=== PATIENT | male | born 1940 | race Caucasian/White ===

== ENCOUNTER → 2019-03-09 | Outpatient (CLI) | payer MEDICARE ==
--- NOTE | 2019-03-09 16:21 | CT ---
EXAMINATION TYPE: CT abdomen pelvis wo con DATE OF EXAM: 03/09/2019 COMPARISON: None HISTORY: hydronephrosis CT DLP: 1066 mGycm Automated exposure control for dose reduction was used. TECHNIQUE: Helical acquisition of images was performed from the lung bases through the pelvis. FINDINGS: LUNG BASES: Minimal bibasilar subsegmental dependent atelectasis. LIVER/GB: 1.7 cm benign hepatic cyst in segment IVb. Small calculi in the gallbladder neck. No curren t pericholecystic fluid or fat stranding. No common bile duct dilatation on CT. PANCREAS: No significant abnormality is seen. SPLEEN: Benign granulomas of the spleen. ADRENALS: No significant abnormality is seen. KIDNEYS: There are numerous cystic lesions in the bilateral renal pelvises, however there is no dilat ation of the proximal ureters. These are favored to represent bilateral renal sinus cysts and could b e confirmed with CT with contrast and delayed phase to assess excretion. Cortical right renal cyst is benign measuring 2.1 cm. FREE AIR: No free air is visualized ADENOPATHY: No greater than 1 cm short axis lymph node in the abdomen or pelvis. REPRODUCTIVE ORGANS: Prostate gland is surgically absent. URINARY BLADDER: No significant abnormality is seen. OSSEOUS STRUCTURES: Moderate multilevel degenerative disc disease of the lumbar spine with probable disc herniation at L1-L2. BOWEL: Small hiatal hernia. Sigmoid diverticulosis and other scattered colonic diverticula without p ericolonic fat stranding. IMPRESSION: 1. THE BILATERAL NUMEROUS RENAL SINUS CYSTIC LESIONS ARE HIGHLY FAVORED TO REPRESENT BILATERAL RENAL SINUS CYSTS RATHER THAN HYDRONEPHROSIS THERE IS NO PROXIMAL, MID, NOR DISTAL URETERAL DILATATION. THIS COULD BE CONFIRMED WITH CT WITH CONTRAST ON THE DELAYED PHASE. 2. SMALL CALCULI IN THE GALLBLADDER NECK IN THE LOCATION AND SIZE PORTRAY RISK OF SUBSEQUENT IMPACTIO N, HOWEVER NO CURRENT CT EVIDENCE OF ACUTE CHOLECYSTITIS. 3. PROBABLE DISC HERNIATION AT L1-L2.
== END ==
LOC: RADCTMAIN 15:35
PROVIDERS: ATTEND Urology
DX: N28.1 Cyst of kidney, acquired (principal); K80.20 Calculus of gallbladder without cholecystitis without obstruction
CPT/HCPCS: 74176